=== PATIENT | male | born 1970 | race Caucasian/White ===

== ENCOUNTER 2017-10-13 10:23 | Emergency (ER) | payer SELFPAY ==
[~2017-10-13] VITALS: Ht 175.3 cm; Wt 90.7 kg
[2017-10-13] MEDS ORDERED: MORPHINE SULFATE 2 MG/ML SYR IV STA (10:33)
[2017-10-13] MEDS ORDERED: KETOROLAC TROMETHAMINE 30 MG/ML VIAL IV STA (10:33)
[2017-10-13] MEDS ORDERED: ONDANSETRON HCL INJ 2 MG/ML VIAL IV STA ×2 (10:33→12:30)
[2017-10-13] MEDS ORDERED: SODIUM CHLORIDE 0.9% 1000ML 1,000 ML ONE (10:37)
[2017-10-13] MEDS ORDERED: SODIUM CHLORIDE 0.9% 1000ML 1,000 ML IV STA (10:41)
[2017-10-13 11:20] LABS: BASOPHILS # (AUTO) 0.1 (0.0-0.1); BASOPHILS % 0.8 % (0.0-1.0); EOSINOPHILS # (AUTO) 0.1 (0.0-0.4); EOSINOPHILS % 2.1 % (0.0-6.0); HEMATOCRIT 46.7 % (38.2-49.6); LYMPHOCYTES # (AUTO) 2.5 (1.0-3.2); LYMPHOCYTES % 37.8 % (18.0-39.1); MEAN CORPUSCULAR HEMOGLOBIN 29.9 pg (28-32); MEAN CORPUSCULAR HGB CONC 34.3 g/dL (31-35); MEAN CORPUSCULAR VOLUME 87.1 fL (81-99); MONOCYTES # (AUTO) 0.5 (0.2-0.8); NEUTROPHILS # (AUTO) 3.4 (2.1-6.9); PLATELET COUNT 286 x10e3/uL (140-360); RED BLOOD COUNT 5.36 x10e6/uL (4.3-5.7); RED CELL DISTRIBUTION WIDTH 13.2 % (11.7-14.4)
[2017-10-13] MEDS ORDERED: PROPOFOL IV EMULSION 10MG/ML 100 ML ONE (11:25)
--- NOTE | 2017-10-13 11:37 | Diagnostic Imaging Report ---
PROCEDURE: CT ABDOMEN AND PELVIS WITHOUT CONTRAST TECHNIQUE: The abdomen and pelvis were scanned utilizing a multidetector helical scanner from the diaphragm to the lesser trochanter after the oral administration of water. No IV contrast was administered per renal stone protocol. Coronal and sagittal multiplanar reformations were obtained. COMPARISON: None. INDICATIONS: LEFT FLANK PAIN FINDINGS: ABSENCE OF INTRAVENOUS CONTRAST DECREASES SENSITIVITY FOR DETECTION OF FOCAL LESIONS AND VASCULAR PATHOLOGY. LOWER THORAX: Unremarkable. HEPATOBILIARY: No focal hepatic lesions. No biliary ductal dilatation. Gallbladder is unremarkable SPLEEN: No splenomegaly. PANCREAS: No focal masses or ductal dilatation. ADRENALS: No adrenal nodules. KIDNEYS/URETERS: Right: Punctate nonobstructing calculus in the inferior pole of series 3, image 52). Punctate, nonobstructing calculus in the interpolar region (series 3, image 65). No ureteral calculus, hydronephrosis, or obstruction. No renal contour abnormalities. Left: 2 mm nonobstructing calculus in the interpolar region (series 3, image 62). Punctate, nonobstructing calculus in the inferior pole (series 3, image 79). 4-5 mm partially obstructing calculus in the proximal left ureter (series 3, image 88, and coronal image 59), which results in minimal hydronephrosis. No other renal or ureteral calculi. No renal contour abnormalities. PELVIC ORGANS/BLADDER: No focal lesions or wall thickening. PERITONEUM / RETROPERITONEUM: No free air or fluid. LYMPH NODES: No lymphadenopathy. VESSELS: Incidental note is made of a left circumaortic renal vein. GI TRACT: No bowel dilation or evidence of obstruction. Diverticulosis involving the distal ascending, transverse, and descending colon, without evidence of diverticulitis. BONES AND SOFT TISSUES: No aggressive lytic lesions. Tiny fat-containing umbilical hernia. IMPRESSION: 1. 4-5 mm partially obstructing calculus in the left proximal ureter, which results in minimal hydronephrosis. 2. Lateral bilateral, mostly punctate, nonobstructing calculi, as described. 3. Colonic diverticulosis, without diverticulitis. Efrain Merlos M.D. Dictated by: Efrani Merlos M.D. on 10/13/2017 at 11:37 Electronically approved by: Efrain Merlos M.D. on 10/13/2017 at 11:37
[2017-10-13 11:40] LABS: ALANINE AMINOTRANSFERASE 30 IU/L (0-55); ALBUMIN 4.1 g/dL (3.5-5.0); ALBUMIN/GLOBULIN RATIO 1.3 (0.8-2.0); ALKALINE PHOSPHATASE 79 IU/L (40-150); ANION GAP 14.1 mmol/L (8-16); BLOOD UREA NITROGEN 15 mg/dL (7-26); BUN/CREATININE RATIO 12 (6-25); CALCIUM 9.3 mg/dL (8.4-10.2); CARBON DIOXIDE 25 mmol/L (22-29); CHLORIDE 107 mmol/L (98-107); CREATININE, SERUM 1.24 mg/dL (0.72-1.25); EST GLOMERULAR FILTRATION RATE > 60 ML/MIN (60-); GLUCOSE 94 mg/dL (74-118); POTASSIUM 4.1 mmol/L (3.5-5.1); SODIUM 142 mmol/L (136-145)
[2017-10-13] MEDS ORDERED: HYDROMORPHONE 1MG/1ML INJ IV STA (11:50)
[2017-10-13] MEDS ORDERED: SODIUM CHLORIDE 0.9% 1000ML 1,000 ML IV SCH (12:00)
[2017-10-13 12:12] LABS: BILIRUBIN,URINE NEGATIVE (NEGATIVE); KETONES,URINE NEGATIVE (NEGATIVE); LEUKOCYTE ESTERASE ,URINE NEGATIVE (NEGATIVE); NITRITE,URINE NEGATIVE (NEGATIVE); URINE UROBILINOGEN 0.2 mg/dL (0.2 - 1)
[2017-10-13 12:29] LABS: CLARITY,URINE HAZY (CLEAR); PROTEIN,URINE DIPSTICK TRACE (NEGATIVE)
[2017-10-13 12:30] LABS: COLOR,URINE AMBER (YELLOW)
[2017-10-13 12:34] LABS: RBC,URINE >50 /HPF (0-5)
[2017-10-13 12:35] LABS: BACTERIA,URINE RARE /HPF; EPITHELIAL CELLS,URINE RARE /LPF; YEAST,URINE MODERATE
[2017-10-13] MEDS ORDERED: MORPHINE SULFATE 2 MG/ML SYR IV ONE (12:40)
== END 2017-10-13 14:25 | disposition home or self-care (01) ==
LOC: ER 10:23
DX: R10.9 Unspecified abdominal pain (principal); R11.0 Nausea; N20.1 Calculus of ureter; I10 Essential (primary) hypertension
CPT/HCPCS: 36415; 74176; 80053; 81001; 85025; 96360; 96374; 96376; 99284; J1170; J1885; J2270; J2405; J7030